=== PATIENT | female | born 1955 | race Caucasian/White ===

== ENCOUNTER 2019-02-13 19:17 | Emergency (ER) | payer OTHER ==
[~2019-02-13] VITALS: Ht 165.1 cm; Wt 83.5 kg
[2019-02-13] MEDS ORDERED: CARVEDILOL12.5 MG PO (19:30)
[2019-02-13] MEDS ORDERED: LIPITOR20 MG PO (19:31)
[2019-02-13] MEDS ORDERED: ZESTRIL40 MG PO (19:31)
[2019-02-13] MEDS ORDERED: MICROZIDE12.5 MG PO (19:31)
[2019-02-13] MEDS ORDERED: GUAIFENESIN AC473 ML PO (20:39)
== END 2019-02-13 20:49 | disposition home or self-care (01) ==
LOC: ED 19:17
DX: B34.9 Viral infection, unspecified (principal); I10 Essential (primary) hypertension; E78.00 Pure hypercholesterolemia, unspecified; F17.200 Nicotine dependence, unspecified, uncomplicated; Z79.899 Other long term (current) drug therapy
CPT/HCPCS: 71046; 99283-25

== ENCOUNTER 2020-08-28 06:10 | Day surgery (SDC) | payer OTHER ==
[~2020-08-28] VITALS: Ht 165.1 cm; Wt 101.4 kg
[~2020-08-28 06:10] MED LIST: CARVEDILOL12.5 MG PO; GUAIFENESIN AC473 ML PO; LIPITOR20 MG PO; MICROZIDE12.5 MG PO; ZESTRIL40 MG PO
--- NOTE | 2020-08-28 06:41 | NUR ---
[facility] RAPID COVID TEST DONE PER ORDER. COVID TEST COLLECTED FROM BOTH NARES. LEFT SIDE HAD OBSTRUCTION. RIGHT SIDE GOOD. PT TOLERATED WELL.
--- NOTE | 2020-08-28 11:08 | NUR ---
08/28/20 1108 Yamilet Tran 1058 PATIENT ARRIVES TO PACU SLEEPING, AWAKENS WITH VERBAL STIMULI, BACK TO SLEEP WHEN NOT STIMULATED. RESP EVEN AND UNLABORED, NC AT 3 LITERS.
--- NOTE | 2020-08-29 08:19 | OR ---
[facility] [address] [place], [place] [address] Signed DATE OF OPERATION: 08/28/2020 SURGEON: Liza Ruiz MD PREOPERATIVE DIAGNOSIS: Screening. POSTOPERATIVE DIAGNOSES: 1. 4 mm polyps x2 at 23 cm. 2. 4 mm polyp at 7 cm. 3. Minimal sigmoid diverticulosis. PROCEDURE: Colonoscopy with hot biopsy. ESTIMATED BLOOD LOSS: None. INDICATIONS: Violet is a 64-year-old female asked to see me for her initial screening colonoscopy. She has lost a significant amount of weight and therefore has her diabetes under control by diet only. She has no lower GI complaints. She has no family history of colon cancer or polyps. In the office, I gave her a pamphlet on colonoscopy. She understands the nature of that test. She understands there is risk including, but not limited to gas bloating, crampy abdominal pain, bleeding, perforation requiring surgery, and missed diagnosis. She also understands the need for IV conscious sedation. She had expressed understanding and wished to proceed. PROCEDURE NOTE: Violet was taken into our endoscopy suite and placed in the left lateral decubitus position. She was given IV sedation with 7 mg of Versed and 100 mcg of fentanyl. A digital rectal exam was performed and this was unremarkable. The adult colonoscope was introduced and advanced all around into the cecum under direct visualization of camera. She had an excellent prep. We could easily see the appendiceal orifice and the ileocecal valve. The scope was then slowly withdrawn. We took pictures throughout for photodocumentation. The above-mentioned polyps were easily removed with the help of hot biopsy forceps. She also has diverticula in the sigmoid colon. They were small in size, few in number, and scattered about. Upon retroflexion of the scope, there was no additional pathology noted above the anal canal. After this, the gas was suctioned out and the colonoscope removed. Violet tolerated procedure quite well. Electronically Signed By: LZIA RUIZ MD 08/29/2019 PATIENT NAME: VIOLET CALL OPERATIVE REPORT DATE OF : 57 REPORT #: [id number] PHYSICIAN: LIZA RUIZ MD PCP: IVONNE JENSEN MD REPORT IS CONFIDENTIAL AND NOT TO BE RELEASED WITHOUT AUTHORIZATION [address] [address] Signed RECOMMENDATIONS: I will see Violet back in my office in 7 to 14 days to review her results. Liza Ruiz MD ALB/MODL /[id number] cc: MD Ivonne Thompson MD Copies: LIZA RUIZ MD ~ Electronically Signed By: LIZA RUIZ MD 08/29/20818 PATIENT NAME: VIOLET CALL OPERATIVE REPORT DATE OF : 57 REPORT #: [id number] PHYSICIAN: LIZA RUIZ MD PCP: IVONNE JENSEN MD REPORT IS CONFIDENTIAL AND NOT TO BE RELEASED WITHOUT AUTHORIZATION
--- NOTE | 2020-08-30 13:51 | PATH ---
[facility] [address] [facility] [place], [place] [address] Signed SPECIMEN(S): A SIGMOID POLYP AT 23 CM SPECIMEN(S): B COLON POLYP AT 8 CM SPECIMEN SOURCE: A. SIGMOID POLYP AT 23 CM B. COLON POLYP AT 8 CM CLINICAL HISTORY: Screening colonoscopy. Postop: Diverticulosis, polyps. MICROSCOPIC DESCRIPTION: Histologic sections of all submitted blocks are examined by light microscopy. These findings, together with the gross examination, support the pathologic diagnosis. FINAL PATHOLOGIC DIAGNOSIS: A. Colon, sigmoid, polyp at 23 cm, polypectomy: - Hyperplastic polyp. - Negative for dysplasia or malignancy. B. Colon, polyp at 8 cm, polypectomy: - Fragments of hyperplastic polyp. - Negative for dysplasia or malignancy. NAL:cml:C2NR GROSS DESCRIPTION: Two specimens are received in two containers, labeled "HK." A. The specimen, labeled "HK, sigmoid colon polyp at 23 cm," is received in formalin and consists of two arguello soft tissue fragments that measure 0.2-0.3 cm in greatest dimension. The specimen is entirely submitted in cassette (A1). B. The specimen, labeled "HK, colon polyp at 8 cm," is received in formalin and consists of three arguello soft tissue fragments that measure 0.1-0.3 cm in greatest dimension. The specimen is entirely submitted in cassette (B1). JS (under the direct supervision of a pathologist) The Gross Description was prepared using a voice recognition system. The report was reviewed for accuracy; however, sound-alike word errors, addition and/or deletions may occur. If there is any question about this report, please contact Client Services. PERFORMING LABORATORY: The technical component was performed by [employer], Praneeth Ganlissett Rai, PATIENT NAME: VIOLET CALL PATHOLOGY DATE OF : 57 REPORT #: [id number] PHYSICIAN: EDWARD PATHOLOGY PCP: MARÍA JENSEN MD REPORT IS CONFIDENTIAL AND NOT TO BE RELEASED WITHOUT AUTHORIZATION [facility] [address] [place], [place] [address] [place] [address] (Coffee Farmer: Elizabeth Frazier MD; CLIA# [id number]). Professional interpretation was performed by [facility], [address] [address] (CLIA# [id number]). Diagnostician: Inés Murphy MD Pathologist Electronically Signed 08/30/2020 Copies: ~ PATIENT NAME: VIOLET CALL PATHOLOGY DATE OF : 57 REPORT #: [id number] PHYSICIAN: EDWARD PATHOLOGY PCP: MARÍA JENSEN MD REPORT IS CONFIDENTIAL AND NOT TO BE RELEASED WITHOUT AUTHORIZATION
== END 2020-08-28 11:55 | disposition home or self-care (01) ==
LOC: OPS 06:10 → DS 06:10 → OPS 09:00 → DS 09:45 → OPS 09:45
PROVIDERS: ATTEND Colon & Rectal Surgery
PROC: 0DBE8ZZ Excision of Large Intestine, Via Natural or Artificial Opening Endoscopic (ICD-10-PCS; principal; 2020-08-28 09:00)
DX: Z12.11 Encounter for screening for malignant neoplasm of colon (principal); K63.5 Polyp of colon; K57.30 Diverticulosis of large intestine without perforation or abscess without bleeding; I10 Essential (primary) hypertension; E11.9 Type 2 diabetes mellitus without complications; E78.5 Hyperlipidemia, unspecified; F17.210 Nicotine dependence, cigarettes, uncomplicated; Z20.822 Contact with and (suspected) exposure to COVID-19
CPT/HCPCS: 99153; C9803; G0500; J2250; J3010; U0003

== ENCOUNTER 2022-01-08 20:18 | Emergency (ER) | payer MEDICARE, OTHER ==
[~2022-01-08] VITALS: Ht 165.1 cm; Wt 101.0 kg
[2022-01-08] MEDS ORDERED: GABAPENTIN100 MG PO (22:01)
[2022-01-08] MEDS ORDERED: TERBINAFINE HC250 MG PO (22:02)
[2022-01-08] MEDS ORDERED: PREDNISONE20 MG PO (22:43)
== END 2022-01-08 23:09 | disposition home or self-care (01) ==
LOC: ED 20:18
DX: S46.912A Strain of unspecified muscle, fascia and tendon at shoulder and upper arm level, left arm, initial encounter (principal); I10 Essential (primary) hypertension; E78.00 Pure hypercholesterolemia, unspecified; F17.200 Nicotine dependence, unspecified, uncomplicated; Z91.013 Allergy to seafood; Z79.899 Other long term (current) drug therapy; X58.XXXA Exposure to other specified factors, initial encounter
CPT/HCPCS: 99283; A9270

== ENCOUNTER 2022-03-14 21:52 | Emergency (ER) | payer MEDICARE, OTHER ==
[~2022-03-14] VITALS: Ht 165.1 cm; Wt 100.2 kg
[~2022-03-14 21:52] MED LIST changes: +GABAPENTIN100 MG PO; +PREDNISONE20 MG PO; +TERBINAFINE HC250 MG PO
== END 2022-03-14 23:05 | disposition home or self-care (01) ==
LOC: ED 21:52
DX: S61.212A Laceration without foreign body of right middle finger without damage to nail, initial encounter (principal); Z23 Encounter for immunization; W26.0XXA Contact with knife, initial encounter; I10 Essential (primary) hypertension; E78.00 Pure hypercholesterolemia, unspecified; F17.200 Nicotine dependence, unspecified, uncomplicated; Z91.013 Allergy to seafood; Z79.899 Other long term (current) drug therapy
CPT/HCPCS: 12001; 90471; 90715; 99282-25

== ENCOUNTER 2023-04-21 19:52 | Emergency (ER) | payer MEDICARE, OTHER ==
[~2023-04-21] VITALS: Ht 165.1 cm; Wt 99.0 kg
[~2023-04-21 19:52] MED LIST changes: +PAXLOVID 300-11 EACH PO; +SPIRONOLACTONE100 MG NG; +VALSARTAN320 MG PO; +VALTREX1000 MG PO
[2023-04-21 21:34] VITALS: BP 141/91
== END 2023-04-21 21:34 | disposition home or self-care (01) ==
LOC: ED 19:52
DX: M19.031 Primary osteoarthritis, right wrist (principal); I10 Essential (primary) hypertension; E78.00 Pure hypercholesterolemia, unspecified; F17.200 Nicotine dependence, unspecified, uncomplicated; Z91.013 Allergy to seafood; Z79.899 Other long term (current) drug therapy; Z98.1 Arthrodesis status
CPT/HCPCS: 73110; 99283-25; A9270

== ENCOUNTER 2024-08-27 13:22 | Emergency (ER) | payer MEDICARE, OTHER ==
[~2024-08-27] VITALS: Ht 165.1 cm; Wt 101.8 kg
[2024-08-27 16:00] VITALS: BP 128/82
== END 2024-08-27 16:00 | disposition home or self-care (01) ==
LOC: ED 13:22
DX: R20.2 Paresthesia of skin (principal); I10 Essential (primary) hypertension; F17.200 Nicotine dependence, unspecified, uncomplicated; Z91.013 Allergy to seafood; Z88.9 Allergy status to unspecified drugs, medicaments and biological substances
CPT/HCPCS: 99283